=== PATIENT | female | born 1980 | race Two or more races ===

== ENCOUNTER 2024-11-23 10:30 | Emergency (ER) | payer OTHER ==
[~2024-11-23] VITALS: Ht 157.5 cm; Wt 77.1 kg
[2024-11-23] MEDS ORDERED: CLONAZEPAM1 MG PO (11:15)
[2024-11-23] MEDS ORDERED: GRALISE600 MG (11:15)
[2024-11-23] MEDS ORDERED: QUETIAPINE FUM100 MG PO (11:15)
[2024-11-23] MEDS ORDERED: GLIPIZIDE ER2.5 MG PO (11:16)
[2024-11-23] MEDS ORDERED: EQUETRO200 MG PO (11:16)
[2024-11-23] MEDS ORDERED: PEPCID AC20 MG (11:16)
[2024-11-23] MEDS ORDERED: LEVOTHYROXINE25 MCG PO (11:16)
[2024-11-23] MEDS ORDERED: RESTORIL30 MG PO (11:17)
[2024-11-23] MEDS ORDERED: DULOXETINE HCL40 MG (11:17)
[2024-11-23] MEDS ORDERED: KETOROLAC TROMETHAMINE 60 MG VIAL IM ONE ×4 (11:30→17:48)
[2024-11-23] MEDS ORDERED: NORFLEX100MG PO (17:43)
[2024-11-23] MEDS ORDERED: DICLOFENAC SODI75 MG PO (17:43)
[2024-11-23] MEDS ORDERED: ORPHENADRINE CITRATE 30 MG/ML AMPUL IM ONE (17:45)
[2024-11-23] MEDS ORDERED: ORPHENADRINE CITRATE 30 MG/ML AMPUL ONE (17:47)
== END 2024-11-23 18:09 | disposition home or self-care (01) ==
LOC: ER 10:33
DX: S00.93XA Contusion of unspecified part of head, initial encounter (principal); S30.0XXA Contusion of lower back and pelvis, initial encounter; V03.90XA Pedestrian on foot injured in collision with car, pick-up truck or van, unspecified whether traffic or nontraffic accident, initial encounter; Y93.89 Activity, other specified; Y92.89 Other specified places as the place of occurrence of the external cause; Y99.9 Unspecified external cause status; M62.838 Other muscle spasm; M51.369 Other intervertebral disc degeneration, lumbar region without mention of lumbar back pain or lower extremity pain; E11.9 Type 2 diabetes mellitus without complications; E03.9 Hypothyroidism, unspecified; F32.A Depression, unspecified; Z88.0 Allergy status to penicillin